=== PATIENT | female | born 1950 | race African-American/Black ===

== ENCOUNTER 2017-12-21 12:18 | Emergency (ER) | payer MEDICARE, MEDICAID ==
[~2017-12-21] VITALS: Ht 165.1 cm; Wt 66.0 kg
[2017-12-21] MEDS ORDERED: METHYLPREDNISOLONE SOD SUCC 125 MG/2 ML VIAL IM STA (14:50)
[2017-12-21] MEDS ORDERED: IPRATROPIUM/ALBUTEROL 0.5-3(2.5)MG/3ML NEB HHN ONE (15:00)
[2017-12-21 15:51] VITALS: BP 125/80
== END 2017-12-21 15:53 | disposition home or self-care (01) ==
LOC: ER 13:54
DX: J44.1 Chronic obstructive pulmonary disease with (acute) exacerbation (principal); I10 Essential (primary) hypertension; F17.200 Nicotine dependence, unspecified, uncomplicated; F12.10 Cannabis abuse, uncomplicated; Z96.659 Presence of unspecified artificial knee joint
CPT/HCPCS: 71045; 94640; 96372; 99283; J2930; J7620